=== PATIENT | male | born 1995 | race Caucasian/White ===

== ENCOUNTER 2019-03-30 09:26 | Emergency (ER) | payer SELFPAY ==
[~2019-03-30] VITALS: Ht 172.7 cm; Wt 86.4 kg
[2019-03-30] MEDS ORDERED: CEPHALEXIN MONOHYDRATE 500 MG CAPSULE PO ONE (10:00)
[2019-03-30] MEDS ORDERED: PERTUSS(ACELL),DIPH,TET VAC/PF 0.5 ML VIAL IM ONE (10:00)
[2019-03-30] MEDS ORDERED: LIDOCAINE 1% 10 ML VIAL INJ ONE (10:00)
[2019-03-30 12:08] VITALS: BP 152/96
[2019-03-30] MEDS ORDERED: ACETAMINOPHEN/CODEINE 300-30 MG TABLET PO ONE (12:15)
== END 2019-03-30 12:18 | disposition home or self-care (01) ==
LOC: EDUNIT# 09:26 → EMS 09:36
DX: S66.124A Laceration of flexor muscle, fascia and tendon of right ring finger at wrist and hand level, initial encounter (principal); S61.216A Laceration without foreign body of right little finger without damage to nail, initial encounter; W45.8XXA Other foreign body or object entering through skin, initial encounter; Y93.89 Activity, other specified; Y92.89 Other specified places as the place of occurrence of the external cause; Y99.8 Other external cause status
CPT/HCPCS: 12001; 12041; 90471; 90715; 99285; J3490

== ENCOUNTER 2024-04-29 23:03 | Emergency (ER) | payer MEDICAID, OTHER ==
[~2024-04-29] VITALS: Ht 180.3 cm; Wt 100.0 kg
[2024-04-29 23:07] VITALS: TEMP 100
[2024-04-30] MEDS ORDERED: BACTDSB PO (03:24)
[2024-04-30] MEDS: SULFAMETHOX/TRIMETH DS 800-160 MG/TABLET PO ONE (03:30)
[2024-04-30] MEDS: KETOROLAC TROMETHAMINE 30 MG/ML VIAL IM ONE (03:30)
[2024-04-30] MEDS: ACETAMINOPHEN 325 MG TABLET PO ONE (03:30)
[2024-04-30 03:35] VITALS: BP 126/73; PULSE 79; RESP 18; O2SAT 96
== END 2024-04-30 03:41 | disposition home or self-care (01) ==
LOC: EMS 23:03
DX: L03.211 Cellulitis of face (principal)
CPT/HCPCS: 99283; 96372; J1885